=== PATIENT | female | born 1965 | race Caucasian/White ===

== ENCOUNTER 2016-10-22 17:56 | Emergency (ER) | payer BC | END 2016-10-22 18:38 | disposition home or self-care (01) | LOC: ER 17:56 | DX: S83.91XA Sprain of unspecified site of right knee, initial encounter (principal); S93.401A Sprain of unspecified ligament of right ankle, initial encounter; I10 Essential (primary) hypertension; F17.200 Nicotine dependence, unspecified, uncomplicated; X58.XXXA Exposure to other specified factors, initial encounter | CPT/HCPCS: 73560-RT; 73610-RT; 99283; A9270-GY ==